=== PATIENT | female | born 1985 | race Caucasian/White ===

== ENCOUNTER 2017-09-13 13:58 | Emergency (ER) | payer OTHER ==
[2017-09-13 14:04] VITALS: TEMP 97.8
--- NOTE | 2017-09-13 14:48 | ED PDOC ---
Arrival/HPI - General Chief Complaint: Chest Pain Time Seen by Provider: 09/13/17 14:48 Historian: Patient - History of Present Illness Narrative History of Present Illness (Text): 09/13/17 14:48 This 32 yo female who denies pmh presents to this ED c/o left sided CP x 7 days. Patient stated pain has been worsening last 4 days. Pain worsen with deep inspiration, movement, and palpation. pain improves by remaining still. Patient admits lifting heavy bags, cleaning house, and painting prior onset of pain. Patient denies trauma, fever, cough, sob, abdominal pain, urinary symptoms, leg swelling, hemoptysis, recent surgery/procedure, garcia, blood disorder, hormonal replacement therapy, dizziness, skin rash, or abnormal gait. PER negative for PE. Time/Duration: 1 week Quality: Aching Context: Home Past Medical History - Provider Review Nursing Documentation Reviewed: Yes - Infectious Disease Hx of Infectious Diseases: None - Psychiatric Hx Substance Use: No - Anesthesia Hx Anesthesia: No Family/Social History - Physician Review Nursing Documentation Reviewed: Yes Family/Social History: Other (noncontributory) Smoking Status: Never Smoked Hx Alcohol Use: No Hx Substance Use: No Allergies/Home Meds Allergies/Adverse Reactions: Allergies No Known Allergies Allergy (Verified 09/13/17 14:04) Review of Systems - Review of Systems Constitutional: Normal. absent: Fatigue, Weight Change, Fevers, Night Sweats Eyes: Normal ENT: Normal Respiratory: Normal Cardiovascular: Chest Pain, Other ((+) pleuritic CP). absent: Palpitations, Edema, Calf Pain, GARCIA, Orthopnea, Syncope Gastrointestinal: Normal Genitourinary Female: Normal Musculoskeletal: Normal Skin: Normal Neurological: Normal Endocrine: Normal Hemo/Lymphatic: Normal Psychiatric: Normal Physical Exam Vital Signs Temp Pulse Resp BP Pulse Ox 09/13/17 15:33 67 18 110/45 L 100 09/13/17 14:02 97.8 F 71 16 126/79 98 Temperature: Afebrile Blood Pressure: Normal Pulse: Regular Respiratory Rate: Normal Appearance: Positive for: Well-Appearing, Non-Toxic, Comfortable Pain Distress: None Mental Status: Positive for: Alert and Oriented X 3 - Systems Exam Head: Present: Atraumatic, Normocephalic Pupils: Present: PERRL Extroacular Muscles: Present: EOMI Conjunctiva: Present: Normal Mouth: Present: Moist Mucous Membranes Neck: Present: Normal Range of Motion. No: Meningeal Signs Respiratory/Chest: Present: Clear to Auscultation, Good Air Exchange, Tender to Palpation ((+) mild tenderness over left upper chest area just inferior to left SCJ. No erythema, swelling skin lesion, or ecchymosis.). No: Respiratory Distress, Accessory Muscle Use, Wheezes, Decreased Breath Sounds, Rales, Retracting Cardiovascular: Present: Regular Rate and Rhythm, Normal S1, S2. No: Murmurs Abdomen: Present: Normal Bowel Sounds. No: Tenderness, Distention, Peritoneal Signs Back: Present: Normal Inspection. No: CVA Tenderness Upper Extremity: Present: Normal Inspection, Normal ROM. No: Cyanosis, Edema Lower Extremity: Present: Normal Inspection, Normal ROM. No: Edema Neurological: Present: GCS=15, CN II-XII Intact, Speech Normal, Motor Func Grossly Intact, Normal Sensory Function, Normal Cerebellar Funct, Gait Normal Skin: Present: Warm, Dry, Normal Color. No: Rashes Psychiatric: Present: Alert, Oriented x 3, Normal Insight, Normal Concentration Medical Decision Making ED Course and Treatment: 09/13/17 16:32 Re-evaluation. Patient feels better. Discussed results and plan with patient and her who expresses understanding. All questions answered and there is agreement with the plan to discharge home with instructions. Patient stable for discharge. Return if symptoms persist or worsen. Re-evaluation Time: 16:32 Reassessment Condition: Re-examined, Improved - RAD Interpretation Narrative RAD Interpretations (Text): 09/13/17 16:23 HISTORY: chest pain COMPARISON: No prior. TECHNIQUE: Chest PA and lateral FINDINGS: LUNGS: No active pulmonary disease. PLEURA: No significant pleural effusion identified. No pneumothorax apparent. CARDIOVASCULAR: Normal. OSSEOUS STRUCTURES: No significant abnormalities. VISUALIZED UPPER ABDOMEN: Normal. OTHER FINDINGS: None. IMPRESSION: No active disease. Radiology Orders: 09/13/17 14:48 CHEST TWO VIEWS (PA/LAT) [RAD] Stat - EKG Interpretation Interpreted by ED Physician: Yes (NSR @ 67 bpm. Normal interval. No ST changes ) Type: 12 lead EKG Comparison: No previous EKG avail. - Medication Orders Current Medication Orders: Discontinued Medications Diazepam (Valium) 2 mg PO ONCE ONE PRN Reason: Protocol Stop: 09/13/17 14:52 Last Admin: 09/13/17 15:22 Dose: 2 mg Ketorolac Tromethamine (Toradol) 30 mg IVP STAT STA Stop: 09/13/17 14:50 Last Admin: 09/13/17 15:24 Dose: 30 mg MAR Pain Assessment Document 09/13/17 15:24 MS (Rec: 09/13/17 15:24 MS [facility] [id number] Pain Reassessment Is this a pain reassessment? No Sleep Is patient sleeping during reassessment? No Presence of Pain Presence of Pain Yes IVP Administration Document 09/13/17 15:24 MS (Rec: 09/13/17 15:24 MS [facility] [id number] Charges for Administration # of IVP Administrations 1 Disposition/Present on Arrival - Present on Arrival Any Indicators Present on Arrival: No History of DVT/PE: No History of Uncontrolled Diabetes: No Urinary Catheter: No History of Decub. Ulcer: No History Surgical Site Infection Following: None - Disposition Have Diagnosis and Disposition been Completed?: Yes Diagnosis: Chest wall pain Disposition: HOME/ ROUTINE Disposition Time: 16:33 Patient Plan: Discharge Condition: IMPROVED Discharge Instructions (ExitCare): Chest Wall Pain (ED) Additional Instructions: Call private doctor for follow up visit in 1-2 days. Call clinic if unable to see your doctor. Take medication as instructed with food . Return to emergency if pain worsen , difficulty breathing, fever, or coughing up blood Prescriptions: Diazepam [Valium] 2 mg PO DAILY #5 tablet Famotidine [Pepcid] 40 mg PO DAILY #10 tablet Naproxen 500 mg PO BID PRN #14 tab PRN Reason: Pain, Severe (8-10) Referrals: PCP,NO [Primary Care Provider] - [facility] with [facility] [Outside] - Follow up with primary [facility] [Outside] - Follow up with primary
[2017-09-13 15:34] VITALS: BP 110/45; PULSE 67; RESP 18
--- NOTE | 2017-09-13 16:22 | RAD ---
HISTORY: chest pain COMPARISON: No prior. TECHNIQUE: Chest PA and lateral FINDINGS: LUNGS: No active pulmonary disease. PLEURA: No significant pleural effusion identified. No pneumothorax apparent. CARDIOVASCULAR: Normal. OSSEOUS STRUCTURES: No significant abnormalities. VISUALIZED UPPER ABDOMEN: Normal. OTHER FINDINGS: None. IMPRESSION: No active disease.
[2017-09-13 16:48] VITALS: O2SAT 98
--- NOTE | 2017-09-14 09:22 | CARD ---
APPROVED REPORT EKG Measurement Heart [id number] <Conclusion> Normal sinus rhythm Normal ECG
== END 2017-09-13 16:48 | disposition home or self-care (01) ==
LOC: ED 13:58
DX: R07.89 Other chest pain (principal)
CPT/HCPCS: 71020; 81025; 93005; 96374; 99283; J1885